=== PATIENT | male | born 1945 | race Caucasian/White ===

== ENCOUNTER 2019-12-28 09:07 | Outpatient (CLI) | payer MEDICARE, OTHER ==
[2019-12-28 13:17] LABS: HGB - HEMOGLOBIN 15.4 g/dL (14.0-18.0); MEAN CORPUSCULAR HEMOGLOBIN 30.4 pg (27.0-31.0); MEAN CORPUSCULAR HGB CONC 32.5 g/dL (32.0-36.0); MEAN CORPUSCULAR VOLUME 93.5 fL (80.0-94.0); MEAN PLATELET VOLUME 10.9 fL (7.4-11.4); RED BLOOD COUNT 5.07 10^6/uL (4.70-6.10); RED CELL DISTRIBUTION WIDTH 12.4 % (12.0-15.0); WHITE BLOOD COUNT 8.9 x10^3/uL (4.8-10.8)
[2019-12-28 13:34] LABS: ALBUMIN 4.4 g/dL (3.2-5.5); CALCIUM 9.4 mg/dL (8.5-10.3); CREATININE 1.3 mg/dL (0.6-1.2); PHOSPHORUS 2.2 mg/dL (2.5-4.6); URIC ACID 7.4 mg/dL (2.6-7.2)
[2019-12-28 13:45] LABS: CREATININE,URINE 189.2 mg/dL
== END 2019-12-28 09:08 | disposition home or self-care (01) ==
LOC: LAB.S 09:07
PROVIDERS: ATTEND Internal Medicine Nephrology
DX: N18.30 Chronic kidney disease, stage 3 unspecified (principal); E79.0 Hyperuricemia without signs of inflammatory arthritis and tophaceous disease; E21.1 Secondary hyperparathyroidism, not elsewhere classified
CPT/HCPCS: 36415; 80069; 82570; 83970; 84156; 84550; 85027

== ENCOUNTER 2020-02-24 10:57 | Outpatient (CLI) | payer MEDICARE, OTHER ==
[2020-02-24 15:14] LABS: HGB - HEMOGLOBIN 15.2 g/dL (14.0-18.0); MEAN CORPUSCULAR HEMOGLOBIN 30.3 pg (27.0-31.0); MEAN CORPUSCULAR HGB CONC 31.9 g/dL (32.0-36.0); MEAN CORPUSCULAR VOLUME 95.2 fL (80.0-94.0); MEAN PLATELET VOLUME 10.6 fL (7.4-11.4); RED BLOOD COUNT 5.01 10^6/uL (4.70-6.10); RED CELL DISTRIBUTION WIDTH 12.3 % (12.0-15.0); WHITE BLOOD COUNT 7.7 x10^3/uL (4.8-10.8)
[2020-02-24 15:37] LABS: ALBUMIN 4.3 g/dL (3.2-5.5); ALBUMIN/GLOBULIN RATIO 1.2 (1.0-2.2); ALKALINE PHOSPHATASE 72 IU/L (42-121); ALT ALANINE AMINOTRANSFERASE 25 IU/L (10-60); AST ASPARTATE AMINOTRANSFERASE 25 IU/L (10-42); BUN - BLOOD UREA NITROGEN 30 mg/dL (6-20); CALCIUM 9.3 mg/dL (8.5-10.3); CARBON DIOXIDE - CO2 23 mmol/L (21-32); CHLORIDE 101 mmol/L (101-111); CHOL/HDL RATIO 3.3 (<5.0); CHOLESTEROL 186 mg/dL; CREATININE 1.5 mg/dL (0.6-1.2); GLUCOSE 122 mg/dL (70-100); HDL CHOLESTEROL 57 mg/dL; LDL CHOLESTEROL,CALCULATED 114 mg/dL; SODIUM 133 mmol/L (135-145); TOTAL PROTEIN 7.8 g/dL (6.7-8.2); VLDL CHOLESTEROL 15 mg/dL
[2020-02-24 15:41] LABS: THYROID STIMULATING HORMONE 1.96 uIU/mL (0.34-5.60)
[2020-02-24 15:54] LABS: CRP - C-REACTIVE PROTEIN < 1.0 mg/dL (0-1.0)
[2020-02-24 20:43] LABS: HEMOGLOBIN A1c% 5.9 % (4.27-6.07)
== END 2020-02-24 10:58 | disposition home or self-care (01) ==
LOC: LAB.S 10:57
PROVIDERS: ATTEND Family Medicine
DX: Z00.00 Encounter for general adult medical examination without abnormal findings (principal); M35.3 Polymyalgia rheumatica; E03.9 Hypothyroidism, unspecified; E21.3 Hyperparathyroidism, unspecified; I10 Essential (primary) hypertension
CPT/HCPCS: 36415; 80053; 80061; 83036; 83721; 83970; 84153; 84443; 85027; 85651; 86140

== ENCOUNTER 2022-01-26 16:48 | Outpatient (CLI) | payer MEDICARE, OTHER ==
--- NOTE | 2022-01-26 20:36 | XRAY Report ---
PROCEDURE: Chest 2 View X-Ray INDICATIONS: ATYPICAL CHEST PAIN TECHNIQUE: 2 view(s) of the chest. COMPARISON: None. FINDINGS: Surgical changes and devices: None. Lungs and pleura: No pleural effusions or pneumothorax. Lungs are clear. Mediastinum: Mediastinal contours are normal. Heart size is normal. Bones and chest wall: No suspicious bony abnormalities. Soft tissues appear unremarkable. IMPRESSION: No acute cardiopulmonary pathology. Reviewed by: Kedar Delgado MD on 01/26/2022 8:34 PM PST Approved by: Kedar Delgado MD on 01/26/2022 8:34 PM [facility] Station ID: [id number]
== END 2022-01-26 16:49 | disposition home or self-care (01) ==
LOC: DI.S 16:48
PROVIDERS: ATTEND Registered Nurse
DX: R07.89 Other chest pain (principal)

== ENCOUNTER 2022-01-26 17:01 | Outpatient (CLI) | payer MEDICARE, OTHER ==
[2022-01-26 17:35] LABS: BASOPHILS # (AUTO) 0.1 10^3/uL (0.0-0.1); BASOPHILS % (AUTO) 0.9 %; EOSINOPHILS # (AUTO) 0.1 10^3/uL (0.0-0.7); EOSINOPHILS % (AUTO) 1.2 %; HCT - HEMATOCRIT 44.6 % (42.0-52.0); HGB - HEMOGLOBIN 14.5 g/dL (14.0-18.0); LYMPHOCYTES # (AUTO) 1.5 10^3/uL (1.5-3.5); LYMPHOCYTES % (AUTO) 14.6 %; MEAN CORPUSCULAR HEMOGLOBIN 30.5 pg (27.0-31.0); MEAN CORPUSCULAR HGB CONC 32.5 g/dL (32.0-36.0); MEAN CORPUSCULAR VOLUME 93.9 fL (80.0-94.0); MEAN PLATELET VOLUME 10.1 fL (7.4-11.4); MONOCYTES % (AUTO) 9.5 %; NEUTROPHILS # (AUTO) 7.7 10^3/uL (1.5-6.6); PLT - PLATELET COUNT 324 10^3/uL (130-450); RED BLOOD COUNT 4.75 10^6/uL (4.70-6.10); RED CELL DISTRIBUTION WIDTH 11.9 % (12.0-15.0); WHITE BLOOD COUNT 10.6 x10^3/uL (4.8-10.8)
[2022-01-26 17:52] LABS: ALBUMIN 3.8 g/dL (3.2-5.5); BILIRUBIN,TOTAL 0.8 mg/dL (0.2-1.0); CALCIUM 9.4 mg/dL (8.5-10.3); CREATININE 1.7 mg/dL (0.6-1.2); CRP - C-REACTIVE PROTEIN 1.2 mg/dL (0-1.0); POTASSIUM 4.8 mmol/L (3.5-5.0); TOTAL PROTEIN 7.6 g/dL (6.7-8.2)
== END 2022-01-26 17:02 | disposition home or self-care (01) ==
LOC: LAB 17:01
PROVIDERS: ATTEND Registered Nurse
DX: R07.89 Other chest pain (principal)
CPT/HCPCS: 36415; 80053; 83690; 84484; 85025; 86140

== ENCOUNTER 2022-01-26 19:13 | Emergency (ER) | payer MEDICARE, OTHER ==
--- NOTE | 2022-01-26 19:40 | ED Physician Documentation ---
PD HPI CHEST PAIN - Stated complaint Stated Complaint: CHEST PAIN - Chief complaint Chief Complaint: Cardiac - History obtained from History obtained from: Patient - History of Present Illness Timing - onset: Enter time (10:30), Today Timing - onset during: Light activity Timing - details: Abrupt onset, Constant, Waxing and waning Pain level max: 5 Pain level now: 0 Quality: Pain Location: Substernal Radiation: Right upper extremity Improved by: Nothing Worsened by: Other (no exacerbating factors) Associated symptoms: No: Shortness of air, Diaphoresis, Nausea, Vomiting, Feeling faint / dizzy, General Weakness, Palpitations, Cough Recently seen: Not recently seen - Additional information Additional information: c/o dull, low midline anterior chest pain , onset 10:30 AM while at home , onset with light activity. Pain radiates at times to his right shoulder and down RUE to right hand. No exacerbating nor ameliorating factors. He says he had two similar episodes over past 5 days (with resolution between episodes). He had coronary artery stents placed in 2004 but no cardiac problems since then. Patient went to a clinic earlier today, had EKG, CXR, and blood tests. He was called this evening and told to go to the ED due to high troponin. Review of Systems Constitutional: reports: Reviewed and negative Eyes: reports: Reviewed and negative Ears: reports: Reviewed and negative Nose: reports: Reviewed and negative Throat: reports: Reviewed and negative Cardiac: reports: Chest pain / pressure. denies: Palpitations, Pedal edema, Calf pain Respiratory: reports: Reviewed and negative GI: reports: Reviewed and negative : denies: Dysuria, Frequency Skin: reports: Reviewed and negative Musculoskeletal: reports: Reviewed and negative Neurologic: reports: Reviewed and negative PD PAST MEDICAL HISTORY - Past Medical History Past Medical History: Yes Cardiovascular: Hypertension, High cholesterol, Coronary artery disease Endocrine/Autoimmune: HyPOthyroidism GI: GERD - Past Surgical History Past Surgical History: Yes Cardiovascular: Coronary stent - Present Medications Home Medications: Ambulatory Orders Medication Instructions Recorded Confirmed Ascorbic Acid [Vitamin C] 1,000 mg PO DAILY 01/27/22 01/27/22 Aspirin [Aspirin EC] 81 mg PO DAILY 01/27/22 01/27/22 Atorvastatin [Lipitor] 40 mg PO QPM 01/27/22 01/27/22 Ergocalciferol (Vitamin D2) 50 mcg PO DAILY 01/27/22 01/27/22 [Vitamin D2] Levothyroxine [Synthroid] 75 mcg PO QDAC 01/27/22 01/27/22 Metoprolol Succinate [Toprol Xl] 50 mg PO BID 01/27/22 01/27/22 Omeprazole 40 mg PO DAILY 01/27/22 01/27/22 Spironolactone [Aldactone] 100 mg PO DAILY 01/27/22 01/27/22 Terazosin HCl [Hytrin] 2 mg PO QPM 01/27/22 01/27/22 amLODIPine [Norvasc] 10 mg PO DAILY 01/27/22 01/27/22 - Allergies Allergies/Adverse Reactions: Allergies Allergy/AdvReac Type Severity Reaction Status Date / Time Penicillins Allergy Unknown Verified 01/26/22 19:31 PD ED PE NORMAL - Vitals Vital signs reviewed: Yes - General General: Alert and oriented X 3, No acute distress, Well developed/nourished - HEENT HEENT: Moist mucous membranes - Neck Neck: Supple, no meningeal sign - Cardiac Cardiac: RRR, No murmur, No gallop, No rub - Respiratory Respiratory: No respiratory distress, Clear bilaterally - Abdomen Abdomen: Soft, Non tender - Derm Derm: Normal color, Warm and dry - Extremities Extremities: No edema Results - Vitals Vitals: Vital Signs - 24 hr 01/26/22 01/26/22 01/26/22 19:22 20:01 20:49 Temperature 36.5 C Heart Rate 54 L 49 L 51 L Respiratory 14 11 L 19 Rate Blood Pressure 164/64 H 126/67 142/73 H O2 Saturation 95 98 100 01/26/22 01/26/22 01/26/22 21:00 21:30 22:41 Temperature Heart Rate 51 L 51 L 50 L Respiratory 14 17 18 Rate Blood Pressure 141/59 H 141/65 H 163/71 H O2 Saturation 98 98 97 01/26/22 01/26/22 01/27/22 23:07 23:30 00:00 Temperature Heart Rate 50 L 50 L 52 L Respiratory 14 16 Rate Blood Pressure 138/73 H 137/71 H 133/83 H O2 Saturation 98 97 96 01/27/22 01/27/22 01/27/22 00:30 01:00 02:16 Temperature 35.7 C L Heart Rate 49 L 48 L 53 L Respiratory 13 14 15 Rate Blood Pressure 126/69 126/64 133/70 H O2 Saturation 94 95 94 01/27/22 01/27/22 01/27/22 02:30 04:04 04:44 Temperature 36.8 C Heart Rate 47 L 48 L 57 L Respiratory 15 13 15 Rate Blood Pressure 111/62 111/63 135/62 H O2 Saturation 98 97 97 01/27/22 01/27/22 01/27/22 05:00 05:30 05:57 Temperature Heart Rate 50 L 51 L 69 Respiratory 18 18 13 Rate Blood Pressure 143/65 H 144/64 H 144/64 H O2 Saturation 97 97 97 01/27/22 01/27/22 01/27/22 06:56 07:21 07:30 Temperature Heart Rate 67 55 L 55 L Respiratory 15 16 20 Rate Blood Pressure 144/66 H 133/71 H 122/74 O2 Saturation 98 96 97 01/27/22 01/27/22 01/27/22 08:47 09:25 09:40 Temperature Heart Rate 60 63 64 Respiratory 13 17 16 Rate Blood Pressure 134/71 H 127/75 138/83 H O2 Saturation 98 100 98 Oxygen O2 Source Room air - EKG (time done) No standard instances Rate: Rate (enter#) (55) Rhythm: NSR Parsons: LAD Intervals: Normal NC QRS: LVH Ischemia: T wave inversion (III, aVF) #2 Rate: Rate (enter#) (49) Rhythm: Sinus bradycardia Parsons: Normal Intervals: Normal NC QRS: Normal Ischemia: Normal ST segments, T wave inversion (biphasic T waves V4, V5) - Labs Labs: Laboratory Tests 01/26/22 01/26/22 01/26/22 19:41 19:41 19:41 WBC 12.6 H RBC 4.80 Hgb 14.4 Hct 45.0 MCV 93.8 MCH 30.0 MCHC 32.0 RDW 12.0 Plt Count 337 MPV 10.1 Neut # (Auto) 9.3 H Lymph # (Auto) 1.7 [place] # (Auto) 1.2 H Eos # (Auto) 0.1 Baso # (Auto) 0.1 Absolute Nucleated RBC 0.00 Nucleated RBC % 0.0 PT INR APTT Sodium Potassium Chloride Carbon Dioxide Anion Gap BUN Creatinine Estimated GFR (MDRD) Glucose Calcium Total Bilirubin AST ALT Alkaline Phosphatase Troponin I High Sens 1697.7 H* B-Natriuretic Peptide 103 H Total Protein Albumin Globulin Albumin/Globulin Ratio Lipase SARS-CoV-2 (PCR) 01/26/22 01/26/22 01/26/22 19:41 19:50 21:05 WBC RBC Hgb Hct MCV MCH MCHC RDW Plt Count MPV Neut # (Auto) Lymph # (Auto) [place] # (Auto) Eos # (Auto) Baso # (Auto) Absolute Nucleated RBC Nucleated RBC % PT 12.0 INR 1.1 APTT 25.7 Sodium 134 L Potassium 4.5 Chloride 103 Carbon Dioxide 23 Anion Gap 8.0 BUN 27 H Creatinine 1.7 H Estimated GFR (MDRD) 40 L Glucose 97 Calcium 9.5 Total Bilirubin 0.9 AST 26 ALT 26 Alkaline Phosphatase 80 Troponin I High Sens B-Natriuretic Peptide Total Protein 7.9 Albumin 3.8 Globulin 4.1 Albumin/Globulin Ratio 0.9 L Lipase 40 SARS-CoV-2 (PCR) NOT DETECTED 01/27/22 01/27/22 01/27/22 05:06 05:06 05:06 WBC RBC Hgb Hct MCV MCH MCHC RDW Plt Count MPV Neut # (Auto) Lymph # (Auto) [place] # (Auto) Eos # (Auto) Baso # (Auto) Absolute Nucleated RBC Nucleated RBC % PT INR APTT 94.4 H* Sodium 137 Potassium 4.4 Chloride 104 Carbon Dioxide 23 Anion Gap 10.0 BUN 25 H Creatinine 1.6 H Estimated GFR (MDRD) 42 L Glucose 108 H Calcium 9.3 Total Bilirubin AST ALT Alkaline Phosphatase Troponin I High Sens 3984.9 H* B-Natriuretic Peptide Total Protein Albumin Globulin Albumin/Globulin Ratio Lipase SARS-CoV-2 (PCR) 01/27/22 05:25 WBC 10.9 H RBC 4.57 L Hgb 13.8 L Hct 42.9 MCV 93.9 MCH 30.2 MCHC 32.2 RDW 12.0 Plt Count 309 MPV 10.3 Neut # (Auto) 8.1 H Lymph # (Auto) 1.4 L [place] # (Auto) 1.1 H Eos # (Auto) 0.2 Baso # (Auto) 0.1 Absolute Nucleated RBC 0.00 Nucleated RBC % 0.0 PT INR APTT Sodium Potassium Chloride Carbon Dioxide Anion Gap BUN Creatinine Estimated GFR (MDRD) Glucose Calcium Total Bilirubin AST ALT Alkaline Phosphatase Troponin I High Sens B-Natriuretic Peptide Total Protein Albumin Globulin Albumin/Globulin Ratio Lipase SARS-CoV-2 (PCR) PD MEDICAL DECISION MAKING - ED course Complexity details: reviewed results, re-evaluated patient, considered differential, d/w patient ED course: No ST segment abnormalities on EKG but hs-cTn 1697 in setting of chest pain, c/w NSTEMI. I discussed the case with Dr. Urbina (operations liaison cardiology for [facility]); he recommends heparin, ASA 81mg PO QD, atorvastatin 40mg PO QD. No beds available at [facility] nor other [facility] and thus [facility] is notified. Care of patient turned over to Dr. Guerrero at end of my shift, pending disposition to appropriate facility. Note that CXR not performed in ED as he just had CXR earlier today (result is available to me and it is interpreted by radiology as NAD) Departure - Departure Disposition: 02 Transfer Acute Care Hosp Clinical Impression: NSTEMI (non-ST elevated myocardial infarction) Condition: Stable
[2022-01-26 19:49] LABS: BASOPHILS # (AUTO) 0.1 10^3/uL (0.0-0.1); BASOPHILS % (AUTO) 0.6 %; EOSINOPHILS # (AUTO) 0.1 10^3/uL (0.0-0.7); EOSINOPHILS % (AUTO) 1.1 %; HGB - HEMOGLOBIN 14.4 g/dL (14.0-18.0); LYMPHOCYTES # (AUTO) 1.7 10^3/uL (1.5-3.5); LYMPHOCYTES % (AUTO) 13.7 %; MEAN CORPUSCULAR VOLUME 93.8 fL (80.0-94.0); MEAN PLATELET VOLUME 10.1 fL (7.4-11.4); MONOCYTES # (AUTO) 1.2 10^3/uL (0.0-1.0); MONOCYTES % (AUTO) 9.6 %; NEUTROPHILS # (AUTO) 9.3 10^3/uL (1.5-6.6); NEUTROPHILS % (AUTO) 73.9 %; PLT - PLATELET COUNT 337 10^3/uL (130-450); WHITE BLOOD COUNT 12.6 x10^3/uL (4.8-10.8)
[2022-01-26 20:03] LABS: ALBUMIN 3.8 g/dL (3.2-5.5); ALBUMIN/GLOBULIN RATIO 0.9 (1.0-2.2); BILIRUBIN,TOTAL 0.9 mg/dL (0.2-1.0); CALCIUM 9.5 mg/dL (8.5-10.3); CREATININE 1.7 mg/dL (0.6-1.2); POTASSIUM 4.5 mmol/L (3.5-5.0); TOTAL PROTEIN 7.9 g/dL (6.7-8.2)
[2022-01-26 20:15] LABS: INR 1.1 (0.8-1.2)
[2022-01-26 20:22] LABS: PARTIAL THROMBOPLASTIN TIME 25.7 secs (24.9-33.3)
[2022-01-26] MEDS: HEPARIN 25000UNITS/500ML (D5W) 25,000 UNIT/500 ML BAG IV SCH (23:10)
[2022-01-26] MEDS ORDERED: diphenhydrAMINE 25 MG CAPSULE PO STA (23:23)
[2022-01-26] MEDS ORDERED: ACETAMINOPHEN 325 MG TABLET PO STA (23:23)
[2022-01-27 05:28] LABS: CALCIUM 9.3 mg/dL (8.5-10.3); CREATININE 1.6 mg/dL (0.6-1.2); POTASSIUM 4.4 mmol/L (3.5-5.0)
[2022-01-27 05:56] LABS: BASOPHILS # (AUTO) 0.1 10^3/uL (0.0-0.1); BASOPHILS % (AUTO) 0.7 %; EOSINOPHILS # (AUTO) 0.2 10^3/uL (0.0-0.7); EOSINOPHILS % (AUTO) 1.4 %; HCT - HEMATOCRIT 42.9 % (42.0-52.0); HGB - HEMOGLOBIN 13.8 g/dL (14.0-18.0); LYMPHOCYTES # (AUTO) 1.4 10^3/uL (1.5-3.5); LYMPHOCYTES % (AUTO) 12.5 %; MEAN CORPUSCULAR HEMOGLOBIN 30.2 pg (27.0-31.0); MEAN CORPUSCULAR HGB CONC 32.2 g/dL (32.0-36.0); MEAN CORPUSCULAR VOLUME 93.9 fL (80.0-94.0); MEAN PLATELET VOLUME 10.3 fL (7.4-11.4); MONOCYTES # (AUTO) 1.1 10^3/uL (0.0-1.0); MONOCYTES % (AUTO) 10.4 %; NEUTROPHILS # (AUTO) 8.1 10^3/uL (1.5-6.6); NEUTROPHILS % (AUTO) 74.1 %; PLT - PLATELET COUNT 309 10^3/uL (130-450); RED BLOOD COUNT 4.57 10^6/uL (4.70-6.10); WHITE BLOOD COUNT 10.9 x10^3/uL (4.8-10.8)
[2022-01-27] MEDS ORDERED: NITROGLYCERIN SL 0.4 MG TABLET SL STA (06:56)
--- NOTE | 2022-01-27 08:18 | ED Physician Documentation ---
ED Addendum - Addendum Addendum: Subjective:Resting comfortably in bed. Denies chest pain or shortness of breath. Objective:Vitals appear stable. Lungs are clear. Assessment:NSTEMI Plan:Patient is awaiting transfer to facility with cardiology capabilities and is on the [facility] transfer list. Unfortunately there is a region wide bed Shortage And recent transfers have been taking several days which Patient and family members are aware of.I have also ordered an echo for this morning.
[2022-01-27] MEDS: ATORVASTATIN 40 MG TABLET PO SCH (09:23)
[2022-01-27] MEDS: ASPIRIN CHEW 81 MG TABLET PO SCH (09:23)
[2022-01-27] MEDS ORDERED: PANTOPRAZOLE 40 MG VIAL IVP STA (13:46)
[2022-01-27] MEDS ORDERED: SODIUM CHLORIDE 0.9% 1,000 ML IV STA (19:39)
--- NOTE | 2022-01-27 19:41 | ED Physician Documentation ---
ED Addendum - Addendum Addendum: 01/27/22 19:39 76-year-old Jose Carlos Vu has history of coronary artery disease and over the past 2 weeks he has developed some diarrhea. He presented to the emergency department last night after he developed chest pain during the day and went to the urgent care clinic. There he had elevated troponin and was asked to come to the emergency department. He is now awaiting a bed for transfer for NSTEMI. I was called into the patient's room for abdominal pain which the patient stated o ccurred when he had to use the restroom. He states that is now resolved. He states he had diarrhea x2. I evaluated the patient's inferior vena cava with POCUS and found that he had a 7.9 mm vessel with complete collapse. We are administering a liter of saline intravenously.
[2022-01-27] MEDS ORDERED: HEPARIN 5,000 UNIT/ML VIAL IVP STA (20:04)
[2022-01-27] MEDS ORDERED: ACETAMINOPHEN 325 MG TABLET PO STA (20:51)
[2022-01-27] MEDS ORDERED: diphenhydrAMINE 25 MG CAPSULE PO STA (20:51)
[2022-01-27] MEDS ORDERED: METOPROLOL SUCCINATE 50 MG TABLET PO SCH (21:00)
[2022-01-27] MEDS: HEPARIN 25000UNITS/500ML (D5W) 25,000 UNIT/500 ML BAG IV SCH (23:30)
[2022-01-28 05:43] LABS: BASOPHILS # (AUTO) 0.1 10^3/uL (0.0-0.1); BASOPHILS % (AUTO) 0.7 %; EOSINOPHILS # (AUTO) 0.1 10^3/uL (0.0-0.7); EOSINOPHILS % (AUTO) 1.4 %; HCT - HEMATOCRIT 43.6 % (42.0-52.0); HGB - HEMOGLOBIN 14.1 g/dL (14.0-18.0); LYMPHOCYTES # (AUTO) 1.5 10^3/uL (1.5-3.5); LYMPHOCYTES % (AUTO) 15.9 %; MEAN CORPUSCULAR HEMOGLOBIN 30.3 pg (27.0-31.0); MEAN CORPUSCULAR HGB CONC 32.3 g/dL (32.0-36.0); MEAN CORPUSCULAR VOLUME 93.8 fL (80.0-94.0); MEAN PLATELET VOLUME 10.1 fL (7.4-11.4); MONOCYTES # (AUTO) 1.1 10^3/uL (0.0-1.0); MONOCYTES % (AUTO) 11.8 %; NEUTROPHILS # (AUTO) 6.5 10^3/uL (1.5-6.6); NEUTROPHILS % (AUTO) 69.3 %; PLT - PLATELET COUNT 323 10^3/uL (130-450); RED BLOOD COUNT 4.65 10^6/uL (4.70-6.10); RED CELL DISTRIBUTION WIDTH 12.2 % (12.0-15.0); WHITE BLOOD COUNT 9.4 x10^3/uL (4.8-10.8)
[2022-01-28 05:52] LABS: CALCIUM 9.1 mg/dL (8.5-10.3); CREATININE 1.5 mg/dL (0.6-1.2); POTASSIUM 4.3 mmol/L (3.5-5.0)
--- NOTE | 2022-01-28 08:26 | ED Physician Documentation ---
ED Addendum - Addendum Addendum: 01/28/22 08:25 Patient seen and examined at bedside. He has been chest pain-free since yesterday and has no specific complaints right now. Other than he would like to get up and go to the bathroom. I think it is fine to come off the monitor briefly for that. His troponin peaked at 3984. He has some mild renal insufficiency, looking at old labs his baseline creatinine is usually around 1.3-1.5. His echo preliminary report shows EF of 55 to 60%, grade 1 diastolic dysfunction, no regional wall motion abnormalities. Trace MR and trace TR and trace CA without significant valvular disease otherwise. Assessment: Non-STEMI Plan: 1. His heart rate has been in the low 40s, I decreased his metoprolol from 50 to 25 mg p.o. twice daily, we may hold the next dose if he remains bradycardic and the nurse is aware. 2. I changed him over for from heparin to Lovenox as it will require less nursing time, decrease lab draws etc. 3. The [facility] has been in contact with the [facility] and we are pessimistic he will be dispositioned to a higher level of care today and the patient is aware of this.
[2022-01-28] MEDS ORDERED: METOPROLOL TARTRATE 50 MG TABLET PO SCH (09:00)
[2022-01-28] MEDS ORDERED: ENOXAPARIN 80 MG/0.8 ML SYRINGE SUBQ SCH (09:00)
[2022-01-28] MEDS: ASPIRIN CHEW 81 MG TABLET PO SCH (10:00)
[2022-01-28] MEDS: ATORVASTATIN 40 MG TABLET PO SCH (10:00)
[2022-01-28 18:02] VITALS: BP 118/65
== END 2022-01-28 19:03 | disposition short-term general hospital (02) ==
LOC: ED 19:13
DX: I21.4 Non-ST elevation (NSTEMI) myocardial infarction (principal); I87.1 Compression of vein; N28.9 Disorder of kidney and ureter, unspecified; I49.8 Other specified cardiac arrhythmias; R07.89 Other chest pain; Z20.822 Contact with and (suspected) exposure to COVID-19
CPT/HCPCS: 36415; 71046; 80048; 80053; 83690; 83880; 84484; 85025; 85610; 85730; 86140; 87635; 93005; 93306; 96365; 96366; 96372; 96375; 96376; 99284; 99285; A9270; J1650

== ENCOUNTER 2022-07-08 12:26 | Emergency (ER) | payer MEDICARE, OTHER ==
--- NOTE | 2022-07-08 12:59 | XRAY Report ---
PROCEDURE: Chest 1 View X-Ray INDICATIONS: Chest pain TECHNIQUE: One view of the chest was acquired. COMPARISON: None. FINDINGS: Surgical changes and devices: None. Lungs and pleura: Small focus of consolidation obscuring the left heart border. Mediastinum: Mediastinal contours appear normal. Heart size is normal. Bones and chest wall: No suspicious bony lesions. Overlying soft tissues appear unremarkable. IMPRESSION: Small focus of consolidation and scarring the left heart border. Differential includes atelectasis, e picardiac fat pad or developing infection. Reviewed by: Rolly Flores on 07/08/2022 12:58 PM PDT Approved by: Rolly Flores on 07/08/2022 12:58 PM PDT Station ID: [id number]
[2022-07-08 13:03] LABS: BASOPHILS # (AUTO) 0.1 10^3/uL (0.0-0.1); BASOPHILS % (AUTO) 0.8 %; EOSINOPHILS # (AUTO) 0.3 10^3/uL (0.0-0.7); EOSINOPHILS % (AUTO) 3.6 %; HCT - HEMATOCRIT 45.6 % (42.0-52.0); HGB - HEMOGLOBIN 14.7 g/dL (14.0-18.0); LYMPHOCYTES % (AUTO) 12.7 %; MEAN CORPUSCULAR HEMOGLOBIN 29.6 pg (27.0-31.0); MEAN CORPUSCULAR HGB CONC 32.2 g/dL (32.0-36.0); MEAN CORPUSCULAR VOLUME 91.8 fL (80.0-94.0); MEAN PLATELET VOLUME 10.6 fL (7.4-11.4); MONOCYTES # (AUTO) 0.8 10^3/uL (0.0-1.0); MONOCYTES % (AUTO) 10.3 %; NEUTROPHILS # (AUTO) 5.6 10^3/uL (1.5-6.6); PLT - PLATELET COUNT 289 10^3/uL (130-450); RED BLOOD COUNT 4.97 10^6/uL (4.70-6.10); RED CELL DISTRIBUTION WIDTH 12.4 % (12.0-15.0); WHITE BLOOD COUNT 7.7 x10^3/uL (4.8-10.8)
--- NOTE | 2022-07-08 13:09 | ED Physician Documentation ---
History of Present Illness - Stated complaint Stated Complaint: CHEST PX - Chief complaint Chief Complaint: Cardiac - History obtained from History obtained from: Patient, Family - History of Present Illness Pain level max: 3 Pain level now: 0 - Additonal information Additional information: Patient is a 77-year-old male with known coronary artery disease. He states that he had cardiac stents placed in . He states that in January 2022, He had another "heart attack". He saw Dr. Gant at [facility]. He states he had an angiogram and angioplasty of one of the stents. He states that there were no other lesions found. Patient states that last night he developed a right-sided chest pain at approximately 1 AM. He states it felt like it may have radiated to his jaw. He states that resolved with nitroglycerin. An hour later had a second episode that also resolved with nitroglycerin. He states this morning he was not having any significant pain but decided to "tested" and went for a walk. He states while walking up the hill he developed chest pain again. He stopped, took nitroglycerin and the pain resolved. He has not had recurrent pain since. He states this feels different than the last 2 heart attacks. Patient took his aspirin and Plavix this morning. Review of Systems Constitutional: denies: Fever, Chills Respiratory: denies: Cough GI: denies: Vomiting, Diarrhea Skin: denies: Rash Musculoskeletal: denies: Neck pain, Back pain Neurologic: denies: Headache PD PAST MEDICAL HISTORY - Past Medical History Cardiovascular: Hypertension, High cholesterol, Coronary artery disease Respiratory: None Endocrine/Autoimmune: HyPOthyroidism GI: GERD : None Psych: None Musculoskeletal: None Derm: None - Past Surgical History Past Surgical History: Yes General: Appendectomy Cardiovascular: Coronary stent, Other - Present Medications Home Medications: Ambulatory Orders Medication Instructions Recorded Confirmed Ascorbic Acid [Vitamin C] 1,000 mg PO DAILY 01/27/22 01/27/22 Aspirin [Aspirin EC] 81 mg PO DAILY 01/27/22 01/27/22 Atorvastatin [Lipitor] 40 mg PO QPM 01/27/22 01/27/22 Ergocalciferol (Vitamin D2) 50 mcg PO DAILY 01/27/22 01/27/22 [Vitamin D2] Levothyroxine [Synthroid] 75 mcg PO QDAC 01/27/22 01/27/22 Metoprolol Succinate [Toprol Xl] 50 mg PO BID 01/27/22 01/27/22 Omeprazole 40 mg PO DAILY 01/27/22 01/27/22 Spironolactone [Aldactone] 100 mg PO DAILY 01/27/22 01/27/22 Terazosin HCl [Hytrin] 2 mg PO QPM 01/27/22 01/27/22 amLODIPine [Norvasc] 10 mg PO DAILY 01/27/22 01/27/22 - Allergies Allergies/Adverse Reactions: Allergies Allergy/AdvReac Type Severity Reaction Status Date / Time Penicillins Allergy Unknown Verified 07/08/22 12:41 - Social History Does the pt smoke?: No Smoking Status: Never smoker Does the pt drink ETOH?: No Does the pt have substance abuse?: No - Immunizations Immunizations are current?: Yes - POLST Patient has POLST: No PD ED PE NORMAL - Vitals Vital signs reviewed: Yes - General General: Alert and oriented X 3, No acute distress - HEENT HEENT: Moist mucous membranes - Neck Neck: Supple, no meningeal sign, No JVD, No bruit - Cardiac Cardiac: RRR, No murmur, Strong equal pulses - Respiratory Respiratory: No respiratory distress, Clear bilaterally - Abdomen Abdomen: Soft, Non tender, Non distended - Derm Derm: Warm and dry - Extremities Extremities: No edema, No calf tenderness / cord - Neuro Neuro: Alert and oriented X 3 - Psych Psych: Normal mood, Normal affect Results - Vitals Vitals: Vital Signs - 24 hr 07/08/22 07/08/22 07/08/22 12:32 13:10 14:30 Temperature 36.1 C L Heart Rate 52 L 44 L 44 L Respiratory 18 16 23 Rate Blood Pressure 158/76 H 133/73 H 130/74 O2 Saturation 98 99 99 07/08/22 07/08/22 07/08/22 15:53 16:30 17:00 Temperature Heart Rate 45 L 47 L 45 L Respiratory 18 15 18 Rate Blood Pressure 134/63 H 122/103 H 139/69 H O2 Saturation 98 99 97 Oxygen O2 Source Room air - EKG (time done) 1235 EKG releavant findings:: EKG personally interpreted by author of this note. Relevant findings are: Rate: Rate (enter#) (46) Rhythm: Sinus bradycardia [place]: Normal Intervals: Normal [place] QRS: Normal Ischemia: Normal ST segments - Labs Labs: Laboratory Tests 07/08/22 07/08/22 07/08/22 12:57 12:57 12:57 WBC 7.7 RBC 4.97 Hgb 14.7 Hct 45.6 MCV 91.8 MCH 29.6 MCHC 32.2 RDW 12.4 Plt Count 289 MPV 10.6 Neut # (Auto) 5.6 Lymph # (Auto) 1.0 L Thomas # (Auto) 0.8 Eos # (Auto) 0.3 Baso # (Auto) 0.1 Absolute Nucleated RBC 0.00 Nucleated RBC % 0.0 APTT Sodium 135 Potassium 4.9 Chloride 106 Carbon Dioxide 21 Anion Gap 8.0 BUN 30 H Creatinine 1.5 H Estimated GFR (MDRD) 46 L Glucose 98 Calcium 9.4 Total Bilirubin 0.9 AST 26 ALT 33 Alkaline Phosphatase 62 Troponin I High Sens 9.8 Total Protein 7.6 Albumin 4.2 Globulin 3.4 Albumin/Globulin Ratio 1.2 Lipase 40 07/08/22 12:57 WBC RBC Hgb Hct MCV MCH MCHC RDW Plt Count MPV Neut # (Auto) Lymph # (Auto) Thomas # (Auto) Eos # (Auto) Baso # (Auto) Absolute Nucleated RBC Nucleated RBC % APTT 25.7 Sodium Potassium Chloride Carbon Dioxide Anion Gap BUN Creatinine Estimated GFR (MDRD) Glucose Calcium Total Bilirubin AST ALT Alkaline Phosphatase Troponin I High Sens Total Protein Albumin Globulin Albumin/Globulin Ratio Lipase - Rads (name of study) cxr Relevant Findings:: Final report received, See rad report PD Medical Decision Making - ED course Complexity details: reviewed results, re-evaluated patient, considered differential, d/w patient, d/w family, d/w field sales consultant ED course: 77-year-old male with chest pain concerning for unstable angina. Discussed the case with Dr. Newby, cardiology at [facility] who recommends transfer. Recommend starting the patient on a heparin drip. Patient is currently asymptomatic. [facility] states that no beds are available currently. We will continue calling other hospitals to seek a bed for this patient. Patient will continue to board in the emergency department until a bed can be found. Currently [facility] do not have any beds. Patient will be signed out to the oncoming emergency department physician. This document was made in part using voice recognition software. While efforts are made to proofread this document, sound alike and grammatical errors may occur. IMPRESSION: Small focus of consolidation and scarring the left heart border. Differential includes atelectasis, epicardiac fat pad or developing infection. Departure - Departure Disposition: 02 Transfer Acute Care Hosp Clinical Impression: Unstable angina Condition: Stable
[2022-07-08 13:15] LABS: ALBUMIN 4.2 g/dL (3.2-5.5); ALBUMIN/GLOBULIN RATIO 1.2 (1.0-2.2); BILIRUBIN,TOTAL 0.9 mg/dL (0.2-1.0); CALCIUM 9.4 mg/dL (8.5-10.3); CREATININE 1.5 mg/dL (0.6-1.2); POTASSIUM 4.9 mmol/L (3.5-5.0); TOTAL PROTEIN 7.6 g/dL (6.7-8.2)
[2022-07-08] MEDS: HEPARIN 25000UNITS/500ML (D5W) 25,000 UNIT/500 ML BAG IV SCH (14:21)
[2022-07-08] MEDS ORDERED: ACETAMINOPHEN 500 MG TABLET PO PRN (17:20)
[2022-07-08] MEDS ORDERED: ONDANSETRON 4 MG/2 ML VIAL IVP PRN (17:20)
[2022-07-08] MEDS ORDERED: LORazepam 1 MG TABLET PO STA (21:57)
[2022-07-08] MEDS: METOPROLOL SUCCINATE 25 MG TABLET PO SCH (22:30)
[2022-07-08] MEDS: TERAZOSIN 2 MG CAPSULE PO SCH (22:36)
[2022-07-09 05:09] LABS: BASOPHILS # (AUTO) 0.1 10^3/uL (0.0-0.1); BASOPHILS % (AUTO) 1.2 %; EOSINOPHILS # (AUTO) 0.4 10^3/uL (0.0-0.7); EOSINOPHILS % (AUTO) 6.4 %; HCT - HEMATOCRIT 44.3 % (42.0-52.0); HGB - HEMOGLOBIN 14.5 g/dL (14.0-18.0); LYMPHOCYTES # (AUTO) 1.2 10^3/uL (1.5-3.5); LYMPHOCYTES % (AUTO) 17.5 %; MEAN CORPUSCULAR HEMOGLOBIN 30.2 pg (27.0-31.0); MEAN CORPUSCULAR HGB CONC 32.7 g/dL (32.0-36.0); MEAN CORPUSCULAR VOLUME 92.3 fL (80.0-94.0); MEAN PLATELET VOLUME 10.5 fL (7.4-11.4); MONOCYTES # (AUTO) 0.7 10^3/uL (0.0-1.0); MONOCYTES % (AUTO) 10.6 %; NEUTROPHILS # (AUTO) 4.2 10^3/uL (1.5-6.6); NEUTROPHILS % (AUTO) 63.6 %; PLT - PLATELET COUNT 259 10^3/uL (130-450); RED CELL DISTRIBUTION WIDTH 12.3 % (12.0-15.0); WHITE BLOOD COUNT 6.7 x10^3/uL (4.8-10.8)
[2022-07-09 05:25] LABS: ALBUMIN 3.8 g/dL (3.2-5.5); ALBUMIN/GLOBULIN RATIO 1.2 (1.0-2.2); BILIRUBIN,TOTAL 0.9 mg/dL (0.2-1.0); CALCIUM 9.2 mg/dL (8.5-10.3); CREATININE 1.5 mg/dL (0.6-1.2); POTASSIUM 4.3 mmol/L (3.5-5.0); TOTAL PROTEIN 6.9 g/dL (6.7-8.2)
[2022-07-09] MEDS: LEVOTHYROXINE 75 MCG TABLET PO SCH (06:36)
[2022-07-09] MEDS: PANTOPRAZOLE 40 MG TABLET PO SCH (06:36)
--- NOTE | 2022-07-09 08:00 | ED Physician Documentation ---
ED Addendum - Addendum Addendum: 07/09/22 07:59 Patient received in signout from overnight physician. He is boarding in the emergency department for unstable angina awaiting transfer to facility with cardiology capabilities. He is on a heparin drip. He is currently sleeping so I did not awaken the patient. I was told by the overnight physician that patient did ambulate to the bathroom last night and did not report any chest pain.We will continue to reassess. 07/09/22 09:13 Patient receiving his morning medications. Just walked to the bathroom and denies having any episodes of chest pain. Understands that we are still awaiting for an accepting facility with cardiology capabilities. Remains on heparin drip. Pt signed out at shift change.
[2022-07-09] MEDS: ATORVASTATIN 40 MG TABLET PO SCH (09:01)
[2022-07-09] MEDS: SPIRONOLACTONE 25 MG TABLET PO SCH (09:01)
[2022-07-09] MEDS: ASPIRIN EC 325 MG TABLET PO SCH (09:01)
[2022-07-09] MEDS: METOPROLOL SUCCINATE 25 MG TABLET PO SCH ×2 (09:06→20:53)
[2022-07-09] MEDS: CLOPIDOGREL 75 MG TABLET PO SCH (09:07)
[2022-07-09] MEDS: HEPARIN 25000UNITS/500ML (D5W) 25,000 UNIT/500 ML BAG IV SCH (16:28)
[2022-07-09] MEDS ORDERED: LORazepam 1 MG TABLET PO STA (20:48)
[2022-07-09] MEDS: TERAZOSIN 2 MG CAPSULE PO SCH (20:52)
[2022-07-09] MEDS ORDERED: NITROGLYCERIN SL 0.4 MG TABLET SL STA (22:03)
--- NOTE | 2022-07-09 22:04 | ED Physician Documentation ---
ED Addendum - Addendum Addendum: 07/09/22 22:04 There is still no beds available in the region. I did discuss with Lucila CARRINGTON as well. He is on the waiting list that all facilities. The patient did have an episode of chest pain at approximately 10 PM. Resolved with nitroglycerin. Repeat EKG showed a heart rate of 53, sinus rhythm, no ischemic changes.
[2022-07-09] MEDS ORDERED: MORPHINE 2 MG/ML CARPUJECT IVP STA (23:47)
[2022-07-10] MEDS ORDERED: NITROGLYCERIN SL 0.4 MG TABLET SL STA (00:26)
[2022-07-10] MEDS: PANTOPRAZOLE 40 MG TABLET PO SCH (06:45)
[2022-07-10] MEDS: LEVOTHYROXINE 75 MCG TABLET PO SCH (06:45)
[2022-07-10 07:42] VITALS: BP 137/65
[2022-07-10] MEDS: ASPIRIN EC 325 MG TABLET PO SCH (08:00)
[2022-07-10] MEDS: SPIRONOLACTONE 25 MG TABLET PO SCH (08:01)
[2022-07-10] MEDS: CLOPIDOGREL 75 MG TABLET PO SCH (08:01)
[2022-07-10] MEDS: ATORVASTATIN 40 MG TABLET PO SCH (08:01)
--- NOTE | 2022-07-10 08:08 | ED Physician Documentation ---
ED Addendum - Addendum Addendum: 07/10/22 08:07 After delays the patient is now going to [facility] by ambulance. He is pain-free at this time. Disposition: Transferred to [facility] Condition: Stable Diagnosis: 1. Unstable angina
--- NOTE | 2022-07-10 08:43 | ED Physician Documentation ---
ED Addendum - Addendum Addendum: 07/10/22 08:38 On my overnight shift (07/09/22-07/10/22), patient had intermittent chest pains. He is given SLNTG with improvement. Repeat EKG is without concerning findings (54 bpm, normal axis, early r transition, no ST segment abnormalities). He is subsequently given 2mg IV morphine for recurrent chest pain, again resolved, and then another 0.4 SLNTG for recurence of the chest pain. I heard from [facility] as a bed had become available. I discussed the case with Dr. Zuleta at , accepts patient for transfer
== END 2022-07-10 08:08 | disposition short-term general hospital (02) ==
LOC: ED 12:26
DX: I20.0 Unstable angina (principal); Z76.4 Other boarder to healthcare facility; Z75.1 Person awaiting admission to adequate facility elsewhere; Z20.822 Contact with and (suspected) exposure to COVID-19
CPT/HCPCS: 36415; 71045; 80053; 83690; 84484; 85025; 85730; 87635; 93005; 96365; 96366; 96375; 96376; 99285; A9270; J8499

== ENCOUNTER 2022-10-31 10:40 | Outpatient (CLI) | payer MEDICARE, OTHER ==
[2022-10-31 10:53] LABS: BASOPHILS # (AUTO) 0.1 10^3/uL (0.0-0.1); EOSINOPHILS # (AUTO) 0.1 10^3/uL (0.0-0.7); EOSINOPHILS % (AUTO) 1.4 %; HCT - HEMATOCRIT 41.9 % (42.0-52.0); HGB - HEMOGLOBIN 13.4 g/dL (14.0-18.0); LYMPHOCYTES # (AUTO) 0.9 10^3/uL (1.5-3.5); MEAN CORPUSCULAR HEMOGLOBIN 28.6 pg (27.0-31.0); MEAN CORPUSCULAR VOLUME 89.3 fL (80.0-94.0); MEAN PLATELET VOLUME 10.6 fL (7.4-11.4); MONOCYTES # (AUTO) 0.6 10^3/uL (0.0-1.0); MONOCYTES % (AUTO) 11.5 %; NEUTROPHILS # (AUTO) 3.3 10^3/uL (1.5-6.6); NEUTROPHILS % (AUTO) 67.7 %; PLT - PLATELET COUNT 221 10^3/uL (130-450); RED BLOOD COUNT 4.69 10^6/uL (4.70-6.10); RED CELL DISTRIBUTION WIDTH 13.3 % (12.0-15.0); WHITE BLOOD COUNT 4.9 x10^3/uL (4.8-10.8)
[2022-10-31 11:00] LABS: BILIRUBIN,URINE NEGATIVE (NEGATIVE); GLUCOSE, URINE (UA) NEGATIVE (NEGATIVE); KETONES,URINE (UA) NEGATIVE (NEGATIVE); LEUKOCYTE ESTERASE, URINE NEGATIVE (NEGATIVE); NITRITE,URINE NEGATIVE (NEGATIVE); OCCULT BLOOD,URINE NEGATIVE (NEGATIVE); PH,URINE 5.5 PH (5.0-7.5); PROTEIN,URINE NEGATIVE (NEGATIVE); UROBILINOGEN,URINE 0.2 (NORMAL) E.U./dL (NORMAL)
[2022-10-31 11:01] LABS: CLARITY,URINE CLEAR (CLEAR)
[2022-10-31 11:07] LABS: BACTERIA,URINE Few /HPF (None Seen); RBC,URINE 0-5 /HPF (0-5); SQUAMOUS EPITHELIAL CELL,UR FEW Squamous (<= Few); WBC,URINE 0-3 /HPF (0-3)
[2022-10-31 11:12] LABS: CREATININE,URINE 148.9 mg/dL; PROTEIN/CREATININE RATIO,URINE 0.1 (<=0.2)
[2022-10-31 11:13] LABS: CALCIUM 9.2 mg/dL (8.5-10.3); CREATININE 1.4 mg/dL (0.6-1.3); PHOSPHORUS 2.9 mg/dL (2.5-5.0); POTASSIUM 4.3 mmol/L (3.5-4.5); URIC ACID 6.3 mg/dL (4.4-7.6)
== END 2022-10-31 10:41 | disposition home or self-care (01) ==
LOC: LAB 10:40
PROVIDERS: ATTEND Nurse Practitioner
DX: I12.9 Hypertensive chronic kidney disease with stage 1 through stage 4 chronic kidney disease, or unspecified chronic kidney disease (principal); N18.32 Chronic kidney disease, stage 3b
CPT/HCPCS: 36415; 80069; 81001; 82570; 83970; 84156; 84550; 85025; 87086

== ENCOUNTER 2023-01-07 11:49 | Emergency (ER) | payer MEDICARE, OTHER ==
[2023-01-07 12:13] VITALS: O2SAT 98
[2023-01-07 12:43] LABS: BASOPHILS % (AUTO) 0.8 %; EOSINOPHILS # (AUTO) 0.1 10^3/uL (0.0-0.7); EOSINOPHILS % (AUTO) 1.4 %; HCT - HEMATOCRIT 43.7 % (42.0-52.0); LYMPHOCYTES # (AUTO) 0.8 10^3/uL (1.5-3.5); LYMPHOCYTES % (AUTO) 16.3 %; MEAN CORPUSCULAR VOLUME 87.4 fL (80.0-94.0); MEAN PLATELET VOLUME 10.3 fL (7.4-11.4); MONOCYTES # (AUTO) 0.5 10^3/uL (0.0-1.0); MONOCYTES % (AUTO) 9.3 %; NEUTROPHILS # (AUTO) 3.5 10^3/uL (1.5-6.6); NEUTROPHILS % (AUTO) 71.8 %; PLT - PLATELET COUNT 235 10^3/uL (130-450); RED CELL DISTRIBUTION WIDTH 13.4 % (12.0-15.0); WHITE BLOOD COUNT 4.8 x10^3/uL (4.8-10.8)
[2023-01-07 12:59] LABS: ALBUMIN 4.2 g/dL (3.2-5.5); ALBUMIN/GLOBULIN RATIO 1.5 (1.0-2.2); BILIRUBIN,TOTAL 0.7 mg/dL (0.2-1.0); CALCIUM 9.6 mg/dL (8.5-10.3); CREATININE 1.3 mg/dL (0.6-1.3); POTASSIUM 4.4 mmol/L (3.5-4.5)
[2023-01-07 13:04] LABS: TROPONIN I HIGH SENSITIVITY 9.3 ng/L (2.3-19.7)
--- NOTE | 2023-01-07 13:08 | XRAY Report ---
PROCEDURE: Chest 1 View X-Ray INDICATIONS: Chest Pain TECHNIQUE: One view of the chest was acquired. COMPARISON: 07/08/2022 FINDINGS: Surgical changes and devices: None. Lungs and pleura: Left basilar atelectasis and or infiltrate. Right lung and pleural space clear Mediastinum: Mediastinal contours appear normal. Heart size is normal. Atherosclerotic vascular erna cification noted in the aortic arch. Bones and chest wall: No suspicious bony lesions. Overlying soft tissues appear unremarkable. IMPRESSION: Left basilar atelectasis and/or infiltrate Reviewed by: Eddie Tran MD on 01/07/2023 12:06 PM [facility] Approved by: Eddie Tran MD on 01/07/2023 12:06 PM [facility] Station ID: [id number]
--- NOTE | 2023-01-07 15:03 | ED Physician Documentation ---
History of Present Illness - Stated complaint Stated Complaint: BP - Chief complaint Chief Complaint: General - History obtained from History obtained from: Patient, Family - History of Present Illness Timing: Today - Additonal information Additional information: Abhishek Vu is a 77-year-old male with a history of coronary artery disease who has [address] and he has had an episode today while he was sitting talking to his son. He states that he leaned forward slightly and had a sudden flushing of his face and a pounding headache and this lasted about 5 minutes. Long enough to check his blood pressure and pulse which he states were both elevated. He relates that the pulse might of been 135. He otherwise feels well now. He does indicate that he had been talking with his son earlier about a friend of his sons who had this week and he is preparing to have a catheterization done to his heart this coming week in 5 days. The patient is not ing that he has had some episodic rapid heart rate and some episodic difficulty breathing sometimes at night he will wake up and have to sit up in bed to catch his breath. He is noted some swelling to his ankles at the end of the day sometimes. He has an appoint with his neon tube bender to be seen in 5 days time for a scheduled catheterization. Review of Systems Constitutional: denies: Fever, Chills, Myalgias Eyes: denies: Decreased vision Ears: denies: Ear pain Nose: denies: Rhinorrhea / runny nose, Congestion Throat: reports: Dental pain / toothache. denies: Oral lesions / sores, Sore throat Cardiac: denies: Chest pain / pressure, Palpitations Respiratory: reports: Dyspnea (periodically at night). denies: Cough GI: denies: Abdominal Pain, Nausea, Vomiting, Constipation, Diarrhea : denies: Dysuria, Frequency Skin: denies: Rash Musculoskeletal: denies: Neck pain, Back pain, Extremity pain PD PAST MEDICAL HISTORY - Past Medical History Cardiovascular: Hypertension, High cholesterol, Coronary artery disease Respiratory: None Endocrine/Autoimmune: HyPOthyroidism GI: GERD : None Psych: None Musculoskeletal: Gout Derm: None - Past Surgical History Past Surgical History: Yes General: Appendectomy Cardiovascular: Coronary stent, Other - Present Medications Home Medications: Ambulatory Orders Medication Instructions Recorded Confirmed Ascorbic Acid [Vitamin C] 1,000 mg PO DAILY 01/27/22 07/09/22 Aspirin [Aspirin EC] 81 mg PO DAILY 01/27/22 07/09/22 Ergocalciferol (Vitamin D2) 50 mcg PO DAILY 01/27/22 07/09/22 [Vitamin D2] Levothyroxine [Synthroid] 75 mcg PO QDAC 01/27/22 07/09/22 Omeprazole 40 mg PO DAILY 01/27/22 07/09/22 Spironolactone [Aldactone] 100 mg PO DAILY 01/27/22 07/09/22 Terazosin HCl [Hytrin] 2 mg PO QPM 01/27/22 07/09/22 amLODIPine [Norvasc] 10 mg PO DAILY 01/27/22 07/09/22 Clopidogrel [Plavix] 75 mg PO DAILY 07/09/22 07/09/22 Colchicine 0.6 mg PO BID 07/09/22 07/09/22 Metoprolol Succinate [Toprol Xl] 25 mg PO BID 07/09/22 07/09/22 Rosuvastatin Calcium [Crestor] 40 mg PO DAILY 07/09/22 07/09/22 Clindamycin [Cleocin] 150 mg PO QID #28 cap 01/07/23 - Allergies Allergies/Adverse Reactions: Allergies Allergy/AdvReac Type Severity Reaction Status Date / Time Penicillins Allergy Unknown Verified 01/07/23 12:05 - Social History Does the pt smoke?: No Smoking Status: Never smoker Does the pt drink ETOH?: No Does the pt have substance abuse?: No - Immunizations Immunizations are current?: Yes - POLST Patient has POLST: No PD ED PE NORMAL - Vitals Vital signs reviewed: Yes (hypertensive mild ) - General General: Alert and oriented X 3, No acute distress, Well developed/nourished - HEENT HEENT: Atraumatic, PERRL, EOMI, Other (The teeth on the upper and lower right jaw are tender to tap mildly there is no gingival bulging or mass no specific broken tooth. Both upper and lower are hurting.) - Neck Neck: Supple, no meningeal sign, No bony TTP - Cardiac Cardiac: RRR, No murmur - Respiratory Respiratory: No respiratory distress, Clear bilaterally - Abdomen Abdomen: Soft, Non tender - Back Back: No CVA TTP, No spinal TTP - Derm Derm: Normal color, Warm and dry, No rash - Extremities Extremities: No deformity, No edema - Neuro Neuro: Alert and oriented X 3, strand galvanizer 2-12 intact, No motor deficit, No sensory deficit, Normal speech Eye Opening: Spontaneous Motor: Obeys Commands Verbal: Oriented GCS Score: 15 - Psych Psych: Normal mood, Normal affect Results - Vitals Vitals: Vital Signs - 24 hr 01/07/23 01/07/23 12:08 15:21 Temperature 36.7 C Heart Rate 61 52 L Respiratory 18 17 Rate Blood Pressure 150/70 H 129/73 O2 Saturation 98 98 Oxygen O2 Source Room air - EKG (time done) 1214 EKG releavant findings:: EKG personally interpreted by author of this note. Relevant findings are: Rate: Rate (enter#) (57) Rhythm: NSR Ischemia: Normal ST segments Compare to prior EKG: Changed from prior EKG (SPT 07-08-2022 the rate is faster and normal) Computer interpretation: Agree with computer - Labs Labs: Laboratory Tests 01/07/23 01/07/23 12:36 12:36 WBC 4.8 RBC 5.00 Hgb 14.0 Hct 43.7 MCV 87.4 MCH 28.0 MCHC 32.0 RDW 13.4 Plt Count 235 MPV 10.3 Neut # (Auto) 3.5 Lymph # (Auto) 0.8 L [place] # (Auto) 0.5 Eos # (Auto) 0.1 Baso # (Auto) 0.0 Absolute Nucleated RBC 0.00 Nucleated RBC % 0.0 Sodium 139 Potassium 4.4 Chloride 105 Carbon Dioxide 27 Anion Gap 7.0 BUN 22 H Creatinine 1.3 Estimated GFR (MDRD) 54 L Glucose 107 H Calcium 9.6 Total Bilirubin 0.7 AST 21 ALT 21 Alkaline Phosphatase 54 Troponin I High Sens 9.3 Total Protein 7.0 Albumin 4.2 Globulin 2.8 Albumin/Globulin Ratio 1.5 Lipase 19 - Rads (name of study) chest Relevant Findings:: Prelim report reviewed (Impression: Left basilar atelectasis and/or infiltrate.), EMP independent interpretation of test Procedures - IVC sono (time) 1450 Bedside IVC sono: IVC measures (cm) (1.41), Euvolemia (near) PD Medical Decision Making - ED course Complexity details: reviewed old records, reviewed results, re-evaluated patient, considered differential, d/w patient, d/w family Reviewed Lab Results: We reviewed a complete blood count showing a normal white blood cell count normal hemoglobin hematocrit and platelets. Chemistries were similarly normal with normal electrolytes a minimally elevated BUN at 22 and a creatinine at 1.3 these values are actually as good as the patient has had in the past 3 years. His creatinine of 1.3 is the lowest that has been in 7 years. Liver functions are normal. highly sensitive troponin is normal at 9.3. My interpretation of these benign laboratory results is this is consistent with a benign process. We did do a x-ray of the patient's chest showing infiltrate or atelectasis in the left base I reexamined the patient I cannot hear any sounds consistent with an infiltrate. The patient's white count is normal oxygen saturation is normal and I suspect this is atelectasis and not an infiltrate.By history and examination I have diagnosed the patient with a dental infection and these findings are all consistent with this being a possibility. ED course: 77-year-old male with a history of coronary disease who has had an episode today of flushing and has had over the past week some problems with pain in his upper and lower jaw on the right side. We evaluated the patient for coronary disease and any abnormality and we found nothing. I did discuss with the patient that a the of one of his sons friend yesterday and how this could effect him. I will provide antibiotic for presumed dental infection prior to his cath this coming week. Departure - Departure Disposition: 01 Home, Self Care Clinical Impression: Pain, dental, Stress reaction Condition: Stable Instructions: ED Stress React, ED Tooth Pain Follow-Up: MIGUEL MILIAN MD [Physician No Access] - Prescriptions: Clindamycin [Cleocin] 150 mg PO QID #28 cap Comments: Jose Carlos, today we found reassuring findings on physical exam and laboratory evaluation. We did not find any evidence of damage to your heart. I found a normal-appearing cardiac silhouette in your chest indicating little chance of congestive heart failure. We found that your vascular volume was normal and you are not dehydrated. We did find that you likely have a dental infection on the right side and we would like to treat this as this should be fixed before you have your catheterization done on . Preparing for another heart cath and discussing the of a friend of your sons are both significantly str essful events and this may have contributed to this episode today. For the infection I have escribed some clindamycin to the right aid in [place]. Discharge Date/Time: 01/07/23 15:41
[2023-01-07 15:25] VITALS: BP 129/73
== END 2023-01-07 15:41 | disposition home or self-care (01) ==
LOC: ED 11:49
DX: K08.89 Other specified disorders of teeth and supporting structures (principal); F43.9 Reaction to severe stress, unspecified; E78.00 Pure hypercholesterolemia, unspecified; I25.10 Atherosclerotic heart disease of native coronary artery without angina pectoris; E03.9 Hypothyroidism, unspecified; Z79.82 Long term (current) use of aspirin; Z79.899 Other long term (current) drug therapy; Z79.02 Long term (current) use of antithrombotics/antiplatelets
CPT/HCPCS: 36415; 80053; 83690; 84484; 85025; 85379; 93005; 99284

== ENCOUNTER 2023-02-20 12:10 | Outpatient (CLI) | payer MEDICARE, OTHER ==
[2023-02-20 12:57] LABS: CALCIUM 9.6 mg/dL (8.5-10.3); CREATININE 1.5 mg/dL (0.6-1.3); MAGNESIUM 1.6 mg/dL (1.7-2.3); POTASSIUM 4.4 mmol/L (3.5-4.5)
== END 2023-02-20 12:11 | disposition home or self-care (01) ==
LOC: LAB 12:10
PROVIDERS: ATTEND Physician Assistant
DX: I25.118 Atherosclerotic heart disease of native coronary artery with other forms of angina pectoris (principal)
CPT/HCPCS: 36415; 80048; 83735

== ENCOUNTER 2023-07-13 13:40 | Outpatient (CLI) | payer MEDICARE, OTHER ==
[2023-07-13 14:09] LABS: ALBUMIN 4.2 g/dL (3.2-5.5); CALCIUM 9.8 mg/dL (8.5-10.3); CREATININE 1.7 mg/dL (0.6-1.3); POTASSIUM 4.3 mmol/L (3.5-4.5)
[2023-07-13 14:12] LABS: CREATININE,URINE 141.2 mg/dL
== END 2023-07-13 13:41 | disposition home or self-care (01) ==
LOC: LAB 13:40
PROVIDERS: ATTEND Internal Medicine Nephrology
DX: N18.32 Chronic kidney disease, stage 3b (principal); E21.1 Secondary hyperparathyroidism, not elsewhere classified
CPT/HCPCS: 36415; 80069; 82570; 83970; 84156